=== PATIENT | female | born 1990 | race Caucasian/White ===

== ENCOUNTER 2017-12-02 10:12 | Emergency (ER) | payer OTHER ==
[~2017-12-02] VITALS: Ht 165.1 cm; Wt 129.0 kg
[~2017-12-02 10:12] MED LIST: ACAI PO; CALC-793 PO; CHOL10002 PO; CYAN-19 PO; FISH OIL PO; PROC5TAB56 PO; SUMA25TA35 PO; VITAMIN B COMPLEX PO; VITAMIN C PO
[2017-12-02 10:56] LABS: URINE HCG NEGATIVE (NEG)
[2017-12-02 11:01] LABS: CLARITY,URINE CLOUDY (Clear); COLOR,URINE YELLOW (Yellow); GLUCOSE, URINE NEGATIVE (Neg); KETONES,URINE NEGATIVE (Neg); LEUKOCYTE ESTERASE ,URINE NEGATIVE (Neg); NITRITES, URINE NEGATIVE (Neg); OCCULT BLOOD,URINE LARGE (Neg); PROTEIN,URINE 30 mg/dl (Neg); UROBILINOGEN,URINE 0.2 E.U/dL (0.2-1.0)
[2017-12-02 11:02] LABS: UA COLLECTION TYPE CLN CATCH MIDSTREAM
[2017-12-02 11:09] LABS: BACTERIA,URINE FEW /HPF (Neg); CAL OXALATE CRYSTALS 3+ /HPF (NEGATIVE); RBC,URINE 50-100 /HPF (0-2); SQUAMOUS EPITHELIAL CELL,UR MANY /LPF (FEW); WBC,URINE 0-4 /HPF (0-4)
[2017-12-02 11:18] LABS: BASOPHILS % (AUTO) 0.2 % (0-1); EOSINOPHILS % (AUTO) 0.4 % (0-6); HEMATOCRIT 38.9 % (35.0-45.0); HEMOGLOBIN 13.2 g/dl (12.0-16.0); LYMPHOCYTES % (AUTO) 15.4 % (21-51); MEAN CORPUSCULAR HEMOGLOBIN 26.4 PG (27.0-31.0); MEAN CORPUSCULAR VOLUME 77.5 FL (78-98); MEAN PLATELET VOLUME 9.9 FL (7.4-10.4); MONOCYTES # (AUTO) 0.8 X10'3 (0-0.9); MONOCYTES % (AUTO) 6.2 % (2-12); NEUTROPHILS # (AUTO) 10.2 X10'3 (1.8-7.7); NEUTROPHILS % (AUTO) 77.8 % (42-75); RED BLOOD COUNT 5.01 X10'6 (4.20-5.60); RED CELL DISTRIBUTION WIDTH 13.6 % (11.5-14.5); WHITE BLOOD COUNT 13.1 X10'3 (4.5-11.0)
[2017-12-02 11:37] LABS: ALANINE AMINOTRANSFERASE 18 U/L (12-78); ALBUMIN 3.6 G/DL (3.4-5.0); ALBUMIN/GLOBULIN RATIO 1.2 (1.1-1.5); ALKALINE PHOSPHATASE 86 IU/L (46-116); ANION GAP 7 (8-16); ASPARTATE AMINO TRANSFERASE 12 U/L (10-37); BILIRUBIN,TOTAL 0.8 MG/DL (0.1-1.0); BLOOD UREA NITROGEN 6 MG/DL (7-18); BUN/CREATININE RATIO 6.3 (6.6-38.0); CALCIUM 8.9 MG/DL (8.5-10.1); CHLORIDE 107 MMOL/L (99-107); CREATININE 0.95 MG/DL (0.40-0.90); GLUCOSE 105 MG/DL (70-104); LIPASE 84 U/L (73-393); POTASSIUM 3.7 MMOL/L (3.5-5.1); SODIUM 140 MMOL/L (135-145); TOTAL CARBON DIOXIDE 26.4 MMOL/L (24-32); TOTAL PROTEIN 6.6 G/DL (6.4-8.2); eGFR 72 ML/MIN
[2017-12-02 11:50] LABS: PLATELET COUNT 37 X10'3 (140-440)
[2017-12-02] MEDS ORDERED: ondansetron 4mg rapidly disintigrating tab PO ONE (12:25)
[2017-12-02] MEDS ORDERED: HYDROcodone/acetaminophen 10/325mg tab PO ONE (12:25)
[2017-12-02] MEDS ORDERED: ketorolac trometh inj. 60 MG/2 ML VIAL IM ONE (12:25)
[2017-12-02] MEDS ORDERED: FLO0.4C PO (12:26)
[2017-12-02] MEDS ORDERED: HYDR-3965 PO (12:26)
[2017-12-02] MEDS ORDERED: PRED10TA23 PO (13:24)
[2017-12-02 13:27] VITALS: BP 126/66
== END 2017-12-02 13:28 | disposition home or self-care (01) ==
LOC: ER 10:16
DX: N23 Unspecified renal colic (principal); N20.0 Calculus of kidney; F12.90 Cannabis use, unspecified, uncomplicated; Z79.899 Other long term (current) drug therapy
CPT/HCPCS: 36415; 74176; 80053; 81001; 81025; 83690; 85025; 96372; 99285; J1885

== ENCOUNTER 2020-02-24 23:48 | Emergency (ER) | payer OTHER ==
[~2020-02-24] VITALS: Ht 170.2 cm; Wt 120.5 kg
[~2020-02-24 23:48] MED LIST changes: -CYAN-19 PO; +CYAN100019 PO
[2020-02-25 00:06] VITALS: BP 147/97
--- NOTE | 2020-02-25 11:02 | NUR ---
Patient called asking for resutls. She was given flu test results and educated on the length of time for COVID results.
== END 2020-02-25 02:57 | disposition home or self-care (01) ==
LOC: ER 23:48
DX: B34.9 Viral infection, unspecified (principal); R05 Cough; J02.9 Acute pharyngitis, unspecified; R09.81 Nasal congestion; R50.9 Fever, unspecified; K59.00 Constipation, unspecified; Z20.828 Contact with and (suspected) exposure to other viral communicable diseases; F12.90 Cannabis use, unspecified, uncomplicated; Z86.69 Personal history of other diseases of the nervous system and sense organs; Z87.440 Personal history of urinary (tract) infections; Z72.89 Other problems related to lifestyle; Z79.899 Other long term (current) drug therapy
CPT/HCPCS: 36415; 87081; 87502; 87503; 87635; 87880; 99283

== ENCOUNTER 2020-09-26 11:55 | Emergency (ER) | payer OTHER ==
[~2020-09-26] VITALS: Ht 165.1 cm; Wt 135.4 kg
[2020-09-26 13:10] LABS: BASOPHILS # (AUTO) 0.1 X10'3 (0-0.2); BASOPHILS % (AUTO) 0.6 % (0-1); EOSINOPHILS # (AUTO) 0.2 X10'3 (0-0.9); HEMATOCRIT 42.7 % (35.0-45.0); HEMOGLOBIN 14.1 g/dl (12.0-16.0); LYMPHOCYTES # (AUTO) 3.5 X10'3 (1.1-4.8); LYMPHOCYTES % (AUTO) 21.4 % (21-51); MEAN CORPUSCULAR HEMOGLOBIN 25.9 PG (27.0-31.0); MEAN CORPUSCULAR HGB CONC 33.1 g/dL (33.0-36.5); MEAN CORPUSCULAR VOLUME 78.3 FL (78-98); MONOCYTES # (AUTO) 1.6 X10'3 (0-0.9); MONOCYTES % (AUTO) 9.7 % (2-12); NEUTROPHILS % (AUTO) 67.3 % (42-75); PLATELET COUNT 80 X10'3 (140-440); RED BLOOD COUNT 5.45 X10'6 (4.20-5.60); RED CELL DISTRIBUTION WIDTH 13.7 % (11.5-14.5); WHITE BLOOD COUNT 16.3 X10'3 (4.5-11.0)
[2020-09-26 13:15] LABS: ALBUMIN 3.9 G/DL (3.4-5.0); ANION GAP 8 (8-16); BLOOD UREA NITROGEN 9 MG/DL (7-18); BUN/CREATININE RATIO 11.3 (6.6-38.0); CALCIUM 9.2 MG/DL (8.5-10.1); CHLORIDE 104 MMOL/L (99-107); GLUCOSE 82 MG/DL (70-104); POTASSIUM 4.3 MMOL/L (3.5-5.1); SODIUM 142 MMOL/L (135-145); TOTAL CARBON DIOXIDE 29.6 MMOL/L (24-32); eGFR 85 ML/MIN
[2020-09-26 13:19] LABS: PARTIAL THROMBOPLASTIN TIME 28 SECONDS (22-32)
[2020-09-26 13:49] VITALS: BP 130/85
== END 2020-09-26 13:52 | disposition home or self-care (01) ==
LOC: ER 11:56
DX: R04.0 Epistaxis (principal); F12.10 Cannabis abuse, uncomplicated; Z79.899 Other long term (current) drug therapy
CPT/HCPCS: 36415; 80048; 85025; 85610; 85730; 99283

== ENCOUNTER 2022-09-10 23:26 | Emergency (ER) | payer BC, OTHER ==
[~2022-09-10] VITALS: Ht 165.1 cm; Wt 135.4 kg
[2022-09-10 23:37] VITALS: BP 164/98
[2022-09-11] MEDS ORDERED: acetaminophen 325mg tablet PO ONE (02:00)
[2022-09-11] MEDS ORDERED: ibuprofen tablet 400 MG TABLET PO ONE (02:00)
[2022-09-11] MEDS ORDERED: ACET650T58 PO (02:03)
[2022-09-11] MEDS ORDERED: IBUP-1985 PO (02:03)
== END 2022-09-11 02:45 | disposition home or self-care (01) ==
LOC: ER 23:27
DX: M25.521 Pain in right elbow (principal); F12.90 Cannabis use, unspecified, uncomplicated; Z86.69 Personal history of other diseases of the nervous system and sense organs; Z72.89 Other problems related to lifestyle; Z79.899 Other long term (current) drug therapy
CPT/HCPCS: 73080; 99283; A4565

== ENCOUNTER 2025-01-31 17:34 | Emergency (ER) | payer BC ==
[~2025-01-31] VITALS: Ht 165.1 cm; Wt 107.5 kg
[~2025-01-31 17:34] MED LIST changes: +IBUP600T52 PO
[2025-01-31 17:40] VITALS: TEMP 98.5
--- NOTE | 2025-01-31 18:17 | Physician Documentation ---
History of Present Illness Chief Complaint: Abdominal Pain Stated Complaint: ABD PAIN Time Seen by MD: 18:16 Primary Medical Doctor: DR. BROWN HPI 35-year-old female presenting with right lower quadrant pain She tells me that for the past 4 days or so she has been having pain in the right lower abdomen. She states it has fluctuated, but remained in the same location. There was some radiation back towards her hip. She reports some associated nausea. No fevers or chills. No upper abdominal pain. No dysuria or hematuria. No diarrhea today. No history of abdominal surgeries. She has been taking ibuprofen which kind of dulls the pain Medication Reconciliation Allergies: Coded Allergies: No Known Allergies (Unverified , 01/31/25) Scheduled Baclofen (Baclofen), 1 TAB PO Q8H Calcium Carbonate/Vitamin D3 (Vitamin D3 5,000 Unit Tablet), 1 TABLET PO DAILY, (Reported) Cholecalciferol (Vitamin D3) (Vitamin D3), 1 TABLET PO DAILY, (Reported) Cyanocobalamin (Vitamin B-12) (Vitamin B-12), 1 TABLET PO DAILY, (Reported) Ibuprofen (Ibuprofen), 1 TAB PO Q8H [Acai], 1 CAP PO DAILY, (Reported) [Fish Oil], 1 CAP PO DAILY, (Reported) [Vitamin B Complex], 1 CAP PO DAILY, (Reported) [Vitamin C], 1 TAB PO DAILY, (Reported) Scheduled PRN Prochlorperazine Maleate (Compazine), 1 TAB PO Q6H PRN PRN for headache Sumatriptan Succinate (Imitrex), 1-2 TAB PO Q2H PRN PRN for headache Past Medical History Past Medical History: Seizures, *HEMATOLOGY*, UTI Past Surgical History: no surgical history Alcohol Use: Occasionally Drug Use: marijuana Lives In: Home Occupation: employed Review of Systems Constitutional: Denies: fever Gastrointestinal: Reports: abdominal pain, nausea; Denies: vomiting, diarrhea Physical Exam Vital Signs: Temperature: 98.5, Source: Temporal, Heart Rate: 87, Respiratory Rate: 16, BP: 132/90, Pulse Oximetry: 99, Weight: 107.500 Oxygen Flow Rate: 0 Physical Exam General: This is a pleasant and nontoxic appearing young female, partner at bedside HEENT: Atraumatic, oropharynx is moist Heart: Regular rate and rhythm, normal-appearing peripheral perfusion Lungs: normal work of breathing, normal oxygen saturation on room air Abdomen: Soft, nondistended. Focal tenderness to palpation in the right lower quadrant, no right upper quadrant tenderness or left-sided tenderness. No rebound or guarding. No pain with shaking of the bed Extremities: Warm and well-perfused Neuro: Alert and oriented Psychiatric: Calm and cooperative with exam Progress Results/Orders Results/Orders Vital Signs 01/31/25 17:40 Temp 98.5 Pulse 87 Resp 16 B/P (MAP) 132/90 Pulse Ox 99 O2 Flow Rate 0 Laboratory Tests Test 01/31/25 17:59 CBC Comment Chemistry Comments EKG/XRAY/CT/US/VASC/MRI CT : Impression I personally interpreted the CT scan, and this shows no acute appendicitis, kidney stone or inflammation of the colon Medical Decision Making Differential Dx:Considerations: Include: -Threatened, Appendicitis, Cholelithasis, Constipation, Diverticular disease, Hernia, Inflammatory BD, Ovarian cyst/torsion, Urinary obstruction, Urinary tract infection, Urolithiasis Additional Comments The patient presents with 4 days of right lower quadrant pain. She does have some focal tenderness there but without peritoneal findings. Otherwise she is very well-appearing. An IV was placed and she was given Toradol and Zofran. Labs returned with unremarkable kidney function and liver function. Mild leukocytosis. Urinalysis without infection or hematuria. She is not . CT scan of the abdomen shows no appendicitis or other acute process. On re- evaluation, she felt much better after the Toradol. I had a shared decision- making conversation. I did offer to do pelvic ultrasound to further evaluate her ovaries. However she declined this, and preferred to just return home. Given her appearance, this seems reasonable. She was given home care instructions including anti-inflammatories. She will be given a muscle relaxant. She will follow up with the primary care doctor. Return precautions given. The exact cause of her pain is unclear, but hopefully is a muscle strain or other benign process. Departure Time of Disposition: 21:08 Disposition: 01 HOME / SELF CARE / HOMELESS Impression: Primary Impression: Right lower quadrant pain Condition: Improved Discharge Instructions: Abdominal Pain (Nonspecific) Referrals: NO PRIMARY CARE PROVIDER (PCP) Prescriptions Baclofen (Baclofen) 10 Mg Tablet 1 TAB PO Q8H for 10 Days, #20 TAB 0 Refills Prov: ROSE BLAKE MD 01/31/25 Education Educated: Patient Educated regarding: diagnosis, treatment, need for follow up Signature Scribe Signature: na Attestation: ROSE Edmonds MD Jan 31, 2025 18:17
[2025-01-31 18:27] LABS: MEAN PLATELET VOLUME 8.6 FL (7.4-10.4); RED CELL DISTRIBUTION WIDTH 13.6 % (11.5-14.5)
[2025-01-31 18:33] LABS: CREATININE 0.62 MG/DL (0.40-0.90); TOTAL CARBON DIOXIDE 25.8 MMOL/L (24-32); eCRCL 116 ML/MIN; eGFR > 90 ML/MIN
[2025-01-31 18:44] VITALS: BP 130/86; PULSE 88; RESP 16; O2SAT 98
[2025-01-31] MEDS ORDERED: iohexol 300mg/ml 100ml inj. ONE (18:52)
[2025-01-31] MEDS: ondansetron/PF 4mg/2ml inj IV ONE (19:00)
[2025-01-31] MEDS: ketorolac trometh 15mg/ml vial 15 MG/ML ML IV ONE (19:00)
[2025-01-31 19:09] LABS: LEUKOCYTE ESTERASE ,URINE NEGATIVE (Neg); NITRITES, URINE NEGATIVE (Neg); OCCULT BLOOD,URINE NEGATIVE (Neg)
[2025-01-31 19:11] LABS: URINE HCG NEGATIVE (NEG)
[2025-01-31 19:15] LABS: UA COLLECTION TYPE CLN CATCH MIDSTREAM
--- NOTE | 2025-01-31 20:33 | RADIOLOGY REPORT ---
Exam: CT CT ABDOMEN PELVIS W/ IV CONTRAST History: Right lower quadrant pain, concern for appy versus kidney stone versus coli COMPARISON: None Technique: Multidetector spiral CT of the abdomen and pelvis was performed from lung bases to pubic symphysis. Intravenous contrast was administered during this examination. Portal venous imaging was obtained. Axial, coronal and sagittal multiplanar reformats were performed by the technologist on a separate workstation. Radiation Dose : 1. Abdomen/Pelvis: CTDIvol 32.97 mGy, DLP 1670.83 mGy*cm. CONTRAST: Type of contrast: Isovue 300 Contrast injected: 100 ml Findings: Lung Bases: No acute or significant lung base finding. Normal heart size. No pleural or pericardial effusion. Liver: The liver is normal in size. No focal lesions. Normal hepatic vascular enhancement. Gallbladder and biliary Tree: Unremarkable Spleen: Not enlarged measuring 14.1 cm. Pancreas: The pancreas is normal in appearance without focal lesions or abnormal enhancement. Adrenal Glands: Unremarkable Kidneys: No hydronephrosis. Bladder: Unremarkable Bowel: The stomach is grossly normal in appearance. Small bowel and colon are normal in caliber and distribution. Normal appendix is visualized in the right lower quadrant without findings of appendicitis. Ascites: Absent Lymphadenopathy: No mesenteric, retroperitoneal or periportal lymphadenopathy. Abdominal wall and Mesentery: Unremarkable. Vasculature: The visualized abdominal aorta is normal in size and caliber. Abdominal and pelvic vessels demonstrate normal enhancement. Pelvic Organs: IUD Musculoskeletal: No aggressive focal bony lesions, acute fractures or dislocation. IMPRESSION: No acute abdominal or pelvic finding. Radiation optimization: All CT scans at this facility use at least one of these dose optimization techniques: automated exposure control mA and/or kV adjustment per patient size (includes targeted exams where dose is matched to clinical indication) or iterative reconstruction.
[2025-01-31] MEDS ORDERED: BACL10TA PO (21:10)
== END 2025-01-31 21:38 | disposition home or self-care (01) ==
LOC: ER 17:34
DX: R10.31 Right lower quadrant pain (principal); R11.0 Nausea
CPT/HCPCS: 36415; 74177; 80053; 81003; 81025; 83690; 85025; 96374; 96375; 99285; J1885; J2405; Q9967